=== PATIENT | male | born 1955 | race Caucasian/White ===

== ENCOUNTER 2017-04-25 09:44 | Inpatient (IN) | payer MEDICARE, BC ==
[~2017-04-25] VITALS: Ht 188 cm; Wt 120.0 kg
--- NOTE | 2017-04-25 09:30 | NUR ---
ADMIT TO FLOOR VIA AMBULANCE STRETCHER. [facility] TO TRANSFER PT. HE IS CONFUSED AND MUMBLING. COOPERATIVE WITH SIMPLE ONE STEP COMMANDS.
[2017-04-25 12:52] VITALS: BP 109/49; BMI 35.2
--- NOTE | 2017-04-25 15:54 | NUR ---
RESTING QUIETLY IN BED. LIFE VEST WAS PLACED ON PT BUT SENSOR MONITOR SHOWED TO REMOVE VEST DUE TO MALFUNCTION. CALLED [employer] SUPPORT TO HAVE TECHNITION COME EVAL PROBLEM. PT WAS PLACED IN TELEMETRY. HE IS A MAX ASST WITH ROLLING OVER. NO DRAINAGE NOTED FROM WOUNDS. STILL WEARING OXYGEN AT 3LNC. RENAL GAS PIT WORKER ROUNDED ON PT AND SPOKE WITH PT AND . MEDS REVIEWED BY GAS PIT WORKER. PT SCHEDULED FOR DIALYSIS ON 04/26/17
[2017-04-25 19:29] VITALS: BP 119/81
--- NOTE | 2017-04-25 19:29 | NUR ---
RECIEVED UP IN BED WITH EYES OPEN AND TV ON. SPOUSE AT BEDSIDE. HOB ELEVATED AND O2@ 3 LITERS PER N/C. RESP EVEN AND UNLABORED. DENIES ANY PAIN OR NEEDS AT THIS TIME. FISTULA TO LEFT UPPER ARM WITH GOOD BRUIT AND TRILL. SL TO RIGHT WRIST. DRESSING TO ABD AND RIGHT THIGH. CALL LIGHT AND OVERBED TABLE IN REACH.
--- NOTE | 2017-04-25 23:01 | NUR ---
RESTING IN BED WITH EYEYS CLOSD. HOB ELEVATED AND O2@3 LITERS PER N/C. DRESSINGS TO ABD AND RIGHT UPPER THIGH CHANGED THIS SHIFT. IV D/C'D. DOES NOT URINATE R/T CHRONIC KIDNEY FAILURE. CALL LIGHT AND OVERBED TABLE IN REACH.
--- NOTE | 2017-04-26 02:09 | NUR ---
RESTING IN BED WITH EYES COPEN. CALL LIGHT AND OVER BED TABLE IN REACH. HOB ELEVATED AND O2@3 LITERS PER N/C. RESP EVEN AND UNLABORED. SPOUSE AT BEDSIDE WITH EYES CLOSED.
[2017-04-26] MEDS ORDERED: FERRIC CITRATE210 MG PO (06:51)
[2017-04-26] MEDS ORDERED: PROTONIX40 MG PO (06:52)
[2017-04-26] MEDS ORDERED: GABAPENTIN100 MG PO (06:52)
[2017-04-26] MEDS ORDERED: COMBIVENT RESPIM4 GM INH (06:57)
[2017-04-26] MEDS ORDERED: MEXITIL 150 MG150 MG PO (06:58)
[2017-04-26] MEDS ORDERED: RENAGEL400 MG PO (07:00)
[2017-04-26] MEDS ORDERED: DAKIN'S 0.125%480 M1 TOPICAL (07:02)
[2017-04-26] MEDS ORDERED: LIDOCAINE 2 %100 ML PO (07:05)
[2017-04-26 07:12] LABS: BASOPHILS 0.4 % (0-2); EOSINOPHILS 3.8 % (0-7); HEMATOCRIT 39.3 % (42.0-54.0); HEMOGLOBIN 11.9 g/dL (13.5-17.5); IMMATURE GRANULOCYTES 0.4 % (0-5); LYMPHOCYTES 11.3 % (15-50); MCH 29.4 pg (26.0-34.0); MCHC 30.3 g/dL (31.0-37.0); MEAN PLATELET VOLUME 11.7 fL (7.4-10.4); MONOCYTES 15.3 % (2-11); NEUTROPHILS 68.8 % (40-80); PLATELET COUNT 111 10x3/uL (130-400); RBC 4.05 10x6/uL (4.20-6.10); WBC 4.5 10x3/uL (4.8-10.8)
[2017-04-26 07:24] LABS: ANION GAP 20.3 mmol/L (8-16); CALCIUM 8.4 mg/dL (8.5-10.1); CARBON DIOXIDE 26.4 mmol/L (21.0-32.0); CREATININE - SERUM 9.2 mg/dL (0.6-1.3); POTASSIUM - SERUM 5.7 mmol/L (3.5-5.1)
--- NOTE | 2017-04-26 07:30 | NUR ---
LYING IN BED EYES CLOSED RESTING. AT BEDSIDE. APPROPRIATE RISE AND FALL OF CHEST. NO S/SX OF ACUTE DISTRESS NOTED. CALL LIGHT AND PERSONAL ITEMS WITHIN REACH, BED LOW AND ALARM ON. WILL CONTINUE TO MONITOR
[2017-04-26 09:49] VITALS: BP 105/44
--- NOTE | 2017-04-26 10:55 | NUR ---
IN THERAPY GYM WITH OCCUPATIONAL THERAPY. NO S/SX OF RESPIRATORY DISTRESS NOTED.
[2017-04-26 12:53] VITALS: Ht 188 cm; Wt 120.0 kg
--- NOTE | 2017-04-26 13:46 | NUR ---
SITTING UP IN W/C VISITING WITH FAMILY. DENIES ANY NEEDS OR PAIN. NO S/SX OF ACUTE DISTRESS NOTED. CALL LIGHT WITHIN REACH, W/C BRAKES LOCKED AND BOX ALARM ON. WILL CONTINUE TO MONITOR
--- NOTE | 2017-04-26 13:50 | NUR ---
TRANSPORTED TO DIALYSIS VIA W/C
--- NOTE | 2017-04-26 18:15 | NUR ---
RECEIVED PT BACK ON FLOOR FROM DIALYSIS VIA W/C. AND SON IN ROOM WITH PT. CALL LIGHT WITHIN REACH, W/C BRAKES LOCKED AND ALARM ON
--- NOTE | 2017-04-26 18:41 | NUR ---
RESTING QUIETLY IN BED. CALL LIGHT IN REACH. BED IN LOWEST POSITION.
[2017-04-26 19:46] VITALS: BP 102/59
--- NOTE | 2017-04-26 19:48 | NUR ---
RECIEVED UP IN BED WITH EYES OPEN AND SEVERAL FAMILY MEMBERS AT BEDSIDE. CALL LIGHT IN REACH.
--- NOTE | 2017-04-27 02:38 | NUR ---
RESTING IN BED WITH EYES CLOSED. NO S/S OF DISTRESS OBSERVED. CALL LIGHT AND OVERBED TABLE IN REACH. NO OUTPUT THIS SHIFT D/T ESRD.
--- NOTE | 2017-04-27 08:40 | NUR ---
PT AM MEDS ADMINISTERED. PT DENIES NEEDS AT THIS TIME. WCTM.
[2017-04-27 08:43] VITALS: BP 101/50
--- NOTE | 2017-04-27 18:27 | NUR ---
PT HAS RESTED MOST OF THE DAY. FAMILY HAS BEEN AT BEDSIDE VISITING ALL DAY. PT DRESSINGS CHANGED APPX 14O0. PT RT ABD HAS BLACK ESCHAR, PAINTED WITH BETADINE AND COVERED WITH DRY DRESSING. PT RT THIGH WOUND HAS YELLOW ESCHAR AND IS COVERED IN WET TO DRY DRESSING WITH DAKINS SOLUTION. PT RT HEEL IS IS DEEP RED. HEELS ARE BRIDGED.
[2017-04-27 19:40] VITALS: BP 99/53
--- NOTE | 2017-04-27 19:40 | NUR ---
RECIEVED UP IN BED WITH EYES CLOSED. NO S/S OF DISTRESS OBSERVED. CALL LIGHT AND OVERBED TABLE IN REACH.
--- NOTE | 2017-04-28 00:38 | NUR ---
RESTING IN BED WITH EYES CLOSED. SPOUSE AT BEDSIDE. NO S/S OF DISTRESS OBSERVED. CALL LIGHT IN REACH.
--- NOTE | 2017-04-28 02:48 | NUR ---
RESTING IN BED WITH EYES CLOSED. N O S/S OF DISTRESS OBSERVED. CALL LIGHT IN REACH.
--- NOTE | 2017-04-28 06:18 | NUR ---
PT RESTING IN BED WITH EYES OPEN, DRINKING A CUP OF COFFEE WITH HIS . ANXIOUS TO EAT BREAKFAST. NO ACUTE DISTRESS NOTED.
[2017-04-28 07:28] LABS: BASOPHILS 0.5 % (0-2); EOSINOPHILS 4.5 % (0-7); HEMATOCRIT 38.9 % (42.0-54.0); HEMOGLOBIN 11.6 g/dL (13.5-17.5); IMMATURE GRANULOCYTES 0.3 % (0-5); LYMPHOCYTES 10.8 % (15-50); MCHC 29.8 g/dL (31.0-37.0); MCV 97.3 fL (80.0-100.0); MEAN PLATELET VOLUME 11.6 fL (7.4-10.4); MONOCYTES 12.6 % (2-11); NEUTROPHILS 71.3 % (40-80); PLATELET COUNT 102 10x3/uL (130-400); RDW 18.6 % (11.5-14.5)
[2017-04-28 07:38] LABS: ANION GAP 15.5 mmol/L (8-16); CALCIUM 8.6 mg/dL (8.5-10.1); CARBON DIOXIDE 29.5 mmol/L (21.0-32.0); CREATININE - SERUM 8.9 mg/dL (0.6-1.3)
--- NOTE | 2017-04-28 07:54 | NUR ---
RESTING QUIETLY IN BED. CALL LIGHT IN REACH. BED IN LOWEST POSITION.
--- NOTE | 2017-04-28 08:00 | NUR ---
PATIENTS IN ROOM. PATIENT ALERT. SITTING UP IN BED TO EAT BREAKFAST. BED ALARM ON. CALL LIGHT WITHIN REACH. PATIENT IS A DIALYSIS PATIENT. RESERVE LEFT ARM. LEFT ARM FISTULA.
--- NOTE | 2017-04-28 08:17 | CN ---
PATIENT NAME:FOX GUILLORY MEDICAL RECORD: [id number] : 53 LOCATION:[id number] ADMIT DATE: 04/25/17 ACCOUNT: [id number] CONSULTING PHYSICIAN: ALVIN STEPHENSON MD REFERRING PHYSICIAN: BRUCE PIERCE MD DATE OF CONSULTATION: 04/26/2017 Cardiology Consultation HISTORY OF PRESENT ILLNESS: A 61-year-old gentleman with a cardiovascular history who had previous history of coronary artery bypass grafting. Actually was seen at [facility] with [place], has a history of noncompliance. At that point in time, EF was 30% to 35%. He had patent grafts to all major cardiac territories, was transferred here for strengthening and wound care. He is being evaluated for a defibrillator which cannot be done until wounds are healed. We are asked to see him concerning his cardiovascular status. PAST MEDICAL HISTORY: 1. History of diabetes mellitus. 2. Hypertension. 3. Hyperlipidemia. 4. Coronary artery bypass grafting. 5. Ischemic cardiomyopathy. 6. Chronic renal insufficiency. ALLERGIES: PENICILLIN. MEDICATIONS: Currently include Combivent 1 puff b.i.d., Mexitil 150 b.i.d., Neurontin 200 t.i.d., Renagel 400 every day, Protonix 40 every day. SOCIAL HISTORY: Lives in [place], nonsmoker, typically he takes care of his ADLs. Has been noncompliant in the past by previous report. REVIEW OF SYSTEMS: The patient reports easy bruising but reports no swollen glands. The patient reports no fever, no night sweats, no significant weight gain, no significant weight loss. No significant exercise tolerance. The patient reports no dry eyes, no irritation, no vision change. Patient reports no difficulty hearing and no ear pain. Patient reports no frequent nose bleeds or nose and sinus problems. Patient reports on arm pain on exertion. No shortness of breath while lying down. No history of heart murmur. Patient reports no cough, no wheezing or coughing up blood. Patient reports no abdominal pain, no vomiting. Normal appetite. No diarrhea and not vomiting blood. No nausea and no constipation. Patient reports no incontinence. No difficulty urinating. No hematuria. No increased frequency. Patient reports no muscle aches. No weakness, no arthralgias, no back pain. No swelling of the extremities. Patient reports no abnormal mole, no jaundice, no rashes. Reports no loss of consciousness. No weakness and no numbness. No seizures, dizziness, or headaches. The patient reports no depression, no sleep disturbance, feeling safe in a relationship and no alcohol abuse. Patient reports on fatigue. Reports no runny nose or sinus pressure. No itching, no hives, and no frequent sneezing. PHYSICAL EXAMINATION: GENERAL: Chronically ill-appearing gentleman in no acute distress. CONSULT REPORT [id number] FOX GUILLORY VITAL SIGNS: 105/44, pulse 64 and irregular. HEENT: Normocephalic, atraumatic. NECK: No bruits noted. HEART: Irregular II/ systolic ejection murmur. LUNGS: Actually fairly good air excursion. ABDOMEN: Soft, nontender. EXTREMITIES: Pulses 2+. There is no edema. IMPRESSION: Coronary artery disease, cardiomyopathy, chronic systolic dysfunction, renal insufficiency. At this point in time, would like to start JOSE or ARB; however, given his renal failure and potassium at 5.7, would hold on this currently. His rates have been somewhat dorothy, may have trace sick sinus syndrome, would hold carvedilol as well. If potassium comes down with dialysis certainly reevaluate addition of JOSE or ARB. TRANSINT:[id number] Voice Confirmation ID: [id number] DOCUMENT ID: [id number] ALVIN STEPHENSON MD at 0817 CC: [id number] DICTATION DATE: 04/26/17 1026 GEEK SQUAD MANAGER: 04/26/17 1209 ADM IN [id number] [place] [address]
--- NOTE | 2017-04-28 10:55 | NUR ---
PATIENT OM REHAB ROOM, WORKING WITH PHYSICAL THERAPIST. VOICES NO PAIN/DISC AT THIS TIME
--- NOTE | 2017-04-28 11:12 | NUR ---
DR. ANDERSEN INTO SEE PATIENT.
[2017-04-28 12:00] VITALS: BP 108/56
--- NOTE | 2017-04-28 13:46 | NUR ---
PRN PAIN MEDICATION GIVEN FOR THIGH PAIN AFTER THERAPY.
--- NOTE | 2017-04-28 14:34 | NUR ---
DR. WASHINGTON OFFICE CALLED. THIS NURSE TALKED WITH DALE ARAGON. [facility] HAS NO OPTHMOLOGIST ASSOC WITH HOSPITAL AT THIS TIME. WILL HAVE [facility]BER FOLLOW UP WHEN PATIENT IS READY TO BE DISCHARGED.
--- NOTE | 2017-04-28 18:00 | NUR ---
DEWAXER NOTIFIED THIS NURSE THAT PATIENT WILL BE GETTING TX IN ROOM LATER THIS PM
[2017-04-28 19:45] VITALS: BP 114/33
--- NOTE | 2017-04-28 20:05 | NUR ---
PT. IN BED WITH HOB UP FOR COMFORT. ASSESSMENT COMPLETED. NO DRESSING TO RIGHT LATERAL ABD. AREA WHERE BLACK COLORED WOUND BED IS LOCATED. DRESSING TO RIGHT UPPER THIGH DRY AND INTACT. PT. ASKING ABOUT HIS DIALYSIS FOR TODAY. INFORMED PT. THAT I WAS TOLD HE WOULD BE GETTING HIS DIALYSIS TONIGHT AND I WAS WAITING FOR SOMEONE TO CALL. PT. STATED HE UNDERSTOOD. CALL LIGHT WITHIN REACH.
--- NOTE | 2017-04-28 22:10 | NUR ---
RECEIVED CALL FROM [facility] DIALYSIS NURSE, REQUESTING I BRING PT. TO THE DIALYSIS UNIT VIA W/C. AFTER ASSISTING PT. BACK TO W/C FROM BR, TRANSPORTED PT. TO THE DIALYSIS UNIT VIA W/C WITHOUT ANY PROBLEMS.
--- NOTE | 2017-04-29 02:10 | NUR ---
PT. BACK FROM DIALYSIS WHERE NURSE REPORTS SHE WAS ABLE TO REMOVE 2L TONIGHT. PT. BACK TO BED AND POSITIONED TO COMFORT WITH HEELS BRIDGED. CALL LIGHT WITHIN REACH.
--- NOTE | 2017-04-29 03:08 | NUR ---
PT. IN BED WITH HOB UP FOR COMFORT. EYES CLOSED AND RESP. DEEP AND EVEN. O2 ON AT 2L/MIN VIA N/C WITHOUT ANY S/S DISTRESS OBSERVED. CALL LIGHT WITHIN REACH.
[2017-04-29 06:01] VITALS: BP 120/73
--- NOTE | 2017-04-29 08:07 | NUR ---
PT RESTING IN BED WITH EYES OPEN CALL LIGHT IN REACH WILL MONITER PT EATING BREAKFAST WILL MONITER
--- NOTE | 2017-04-29 08:25 | NUR ---
SITTING ON SIDE OF BED.FINISHED BREAKFAST.CL IN REACH.
--- NOTE | 2017-04-29 11:03 | NUR ---
Nutrition Follow Up: Pt was in therapy at the time of RD visit. Interview deferred. Pt is eating 83% meal avg on a renal ADA diet. +BM 04/26/17. Meds and labs reviewed. Rec continue current diet. RD following.
[2017-04-29 11:39] VITALS: BP 101/54
--- NOTE | 2017-04-29 14:00 | NUR ---
RECEIVED CALL FROM [employer] AND THEY WALKED ME THRU TRYING TO GET VEST TO WORK PROPERLY NOT SUCESSFUL STATED HE WOULD SENT OUT SOME ONE TO REPAIR OR REPLACE LIFE VEST UNIT LEANDRO
--- NOTE | 2017-04-29 14:40 | NUR ---
PT TAKEN TO DIALYSIS VIA WHEELCHAIR NO PROBLEMS
--- NOTE | 2017-04-29 17:00 | NUR ---
RECIVED ANOTHER CALL FROM [employer] STATED THEY WOULD BE HERE BETWEEN 10
[2017-04-29 17:11] LABS: HEP B CORE AB TOTAL Negative (Negative)
[2017-04-29 17:11] LABS: HEPATITIS C ANTIBODY <0.1 (0.0-0.9)
--- NOTE | 2017-04-29 19:35 | NUR ---
PATIENT OFF UNIT IN DIALYSIS.
--- NOTE | 2017-04-29 20:20 | NUR ---
CONTINUES OFF UNIT IN DIALYSIS.
[2017-04-29 20:30] VITALS: BP 99/62
--- NOTE | 2017-04-29 20:30 | NUR ---
RETURNED PATIENT TO BED FROM DIALYSIS. NOW SEATED AT BEDSIDE EATING DINNER WHICH WAS HELD EARLIER DUE TO DIALYSIS.
--- NOTE | 2017-04-29 22:15 | NUR ---
ASSESSMENT AND HS MEDS COMPLETE. DRESSINGS TO RIGHT THIGH AND RIGHT UPPER ABDOMEN CHANGED PER CURRENT ORDERS. PATIENT ORIENTED X4 BUT STILL SEEMS A BIT OFF ON COGNITION. REP FROM COMPANY PROVIDING PATIENT'S "[employer]" WAS JUST HERE AND INSERVICED PATIENT AGAIN AND PERFORMED DIAGNOSTICS ON THE DEVICE. THEN HE CHECKED WITH ME BEFORE LEAVING TO INSURE I HAD NO QUESTIONS.
[2017-04-29 23:30] VITALS: BP 103/61
--- NOTE | 2017-04-29 23:30 | NUR ---
PATIENT WAS JUST GIVEN A BEDBATH AND LINENS AND CLOTHES WERE CHANGED BY SUKHI FARIA. PATIENT DENIES NEEDS.
[2017-04-29 23:40] VITALS: BP 103/61
--- NOTE | 2017-04-30 00:10 | NUR ---
RESTING IN BED IN PARTIAL RIGHT SIDELYING POSITION, HOB UP 30 DEGREES. NO DISTRESS APPARENT.
--- NOTE | 2017-04-30 02:00 | NUR ---
CONTINUES IN BED IN PARTIAL RIGHT SIDELYING POSITION. NO DICOMFORT EVIDENT.
--- NOTE | 2017-04-30 04:35 | NUR ---
CONTINUES IN BED, EYES CLOSED. RESPIRATIONS ARE QUIET AND UNLABORED.
[2017-04-30 05:35] VITALS: BP 97/63
[2017-04-30 06:46] LABS: BASOPHILS 0.3 % (0-2); EOSINOPHILS 3.9 % (0-7); HEMATOCRIT 38.7 % (42.0-54.0); HEMOGLOBIN 11.6 g/dL (13.5-17.5); IMMATURE GRANULOCYTES 0.3 % (0-5); LYMPHOCYTES 11.7 % (15-50); MCH 29.1 pg (26.0-34.0); MCV 97.2 fL (80.0-100.0); MEAN PLATELET VOLUME 11.3 fL (7.4-10.4); MONOCYTES 15.3 % (2-11); NEUTROPHILS 68.5 % (40-80); PLATELET COUNT 92 10x3/uL (130-400); RBC 3.98 10x6/uL (4.20-6.10); RDW 18.9 % (11.5-14.5); WBC 3.6 10x3/uL (4.8-10.8)
[2017-04-30 07:06] LABS: CALCIUM 8.7 mg/dL (8.5-10.1); CARBON DIOXIDE 28.6 mmol/L (21.0-32.0); CREATININE - SERUM 7.4 mg/dL (0.6-1.3); POTASSIUM - SERUM 4.6 mmol/L (3.5-5.1)
--- NOTE | 2017-04-30 07:55 | NUR ---
LYING IN BED ON RIGHT SIDE EYES CLOSED RESTING. DENIES ANY NEEDS. CONTINUES ON 2L VIA NC. LIFE VEST ON AND IN WORKING ORDER. NO S/SX OF ACUTE DISTRESS NOTED. CALL LIGHT AND PERSONAL ITEMS WITHIN REACH, BED LOW AND ALARM ON. WILL CONTINUE TO MONITOR
[2017-04-30 08:37] LABS: PLATELET ESTIMATE DECREASED
--- NOTE | 2017-04-30 10:15 | NUR ---
IN THERAPY GYM WITH OCCUPATIONAL THERAPY. NO S/SX OF RESPIRATORY DISTRESS NOTED. WILL CONTINUE TO MONITOR
[2017-04-30 12:13] VITALS: BP 104/52
--- NOTE | 2017-04-30 12:20 | NUR ---
SITTING UP ON SIDE OF BED EATING LUNCH. DENIES ANY NEEDS OR PAIN. NO S/SX OF ACUTE DISTRESS NOTED. CALL LIGHT AND PERSONAL ITEMS WITHIN REACH, BED LOW AND ALARM ON. WILL CONTINUE TO MONITOR
--- NOTE | 2017-04-30 17:04 | NUR ---
LYING IN BED EYES CLOSED RESTING. APPROPRIATE RISE AND FALL OF CHEST. NO S/SX OF ACUTE DISTRESS NOTED. CALL LIGHT AND PERSONAL ITEMS WITHIN REACH, BED LOW AND ALARM ON. WILL CONTINUE TO MONITOR
[2017-04-30 18:30] VITALS: BP 101/64
--- NOTE | 2017-04-30 19:00 | NUR ---
IN BED, AWAKE. LEFT FOOT RESTING ATOP FOOTBOARD. ASSISTED HIM UP IN BED TO ELIMINATE COMPRESSION TO LEFT HEEL. PATIENT DENIES NEEDS. ASKED HIM TO COMPLETE HIS MENU.
--- NOTE | 2017-04-30 21:25 | NUR ---
ASSESSMENT AND HS MEDS COMPLETE. DENIES NEEDS. DRESSING CHANGES TO RIGHT THIGH AND RIGHT UPPER ABDOMEN CHANGED PER CURRENT ORDERS.
--- NOTE | 2017-04-30 22:20 | NUR ---
RESTING QUIETLY IN BED, IN PARTIAL RIGHT SIDELYING POSITION. APPEARS COMFORTABLE.
[2017-04-30 23:15] VITALS: BP 117/61
--- NOTE | 2017-04-30 23:50 | NUR ---
CONTINUES IN BED, EYES CLOSED. NO DISTRESS EVIDENT.
--- NOTE | 2017-05-01 02:15 | NUR ---
REMAINS IN BED TURNED TO PARTIAL RIGHT SIDELYING POSITION. O2 CONTINUES @ 2L PER N/C.
--- NOTE | 2017-05-01 04:35 | NUR ---
IN BED, EYES CLOSED. RESPIRING QUIETLY.
[2017-05-01 06:00] VITALS: BP 112/58
--- NOTE | 2017-05-01 06:10 | NUR ---
VS AND STANDING SCALE WEIGHT OBTAINED AND RECORDED. PATIENT TOOK SCHEDULED PO MED. REPOSITIONED HIM HIGHER UP IN BED FOR COMFORT. SEEMS A BIT CONFUSED THIS MORNING AND HAVING A BIT OF DIFFICULTY FOLLOWING COMMANDS. WEIGHT 275.0 LBS PER STANDING SCALE.
--- NOTE | 2017-05-01 07:31 | NUR ---
RESTING QUIETLY IN BED. CALL LIGHT IN REACH. BED IN LOWEST POSITION.
--- NOTE | 2017-05-01 08:15 | NUR ---
PT RESTING IN BED WITH EYES OPEN CALL LIGHT IN REACH WILL MONITER
[2017-05-01 12:22] VITALS: BP 101/57
--- NOTE | 2017-05-01 16:31 | NUR ---
CARE TEAM MEETING: PATIENT PROGRESSING IN THERAPY . TENATIVE DISCHARGE DATE IS 05/14/17. WILL CONTINUE TO FOLLOW WITH PATIENT.
--- NOTE | 2017-05-01 17:18 | NUR ---
PT UP IN WHEELCHAIR EATING LUCN CALL LIGHT IN REACH WILL MONITER
[2017-05-01 17:55] VITALS: BP 92/42
--- NOTE | 2017-05-01 19:00 | NUR ---
PATIENT SITTING UP ON BEDSIDE EATING HIS DINNER AFTER RECENT RETURN FROM DIALYSIS. DENIES CURRENT NEEDS.
--- NOTE | 2017-05-01 20:30 | NUR ---
RESTING QUIETLY IN BED ON RIGHT SIDE. O2 PER N/C @ 2L FLOW. CONTINUES ON LIFE VEST WHICH INDICATES IT IS MONITORING ROUTINELY AT THIS TIME.
[2017-05-01 22:55] VITALS: BP 129/63
--- NOTE | 2017-05-01 22:55 | NUR ---
ASSESSMENT AND HS MEDS COMPLETE. CHANGED DRESSINGS TO RIGHT THIGH AND RIGHT UPPER ABDOMEN. PATIENT DENIES NEEDS.
--- NOTE | 2017-05-02 00:20 | NUR ---
RESTING IN BED, EYES CLOSED. HOB UP 20 DEGREES. CONTINUES ON O2 @ 2L.
--- NOTE | 2017-05-02 02:10 | NUR ---
CONTINUES IN BED, RESTING ON RIGHT SIDE. APPEARS COMFORTABLE.
--- NOTE | 2017-05-02 04:45 | NUR ---
RESTING QUIETLY IN BED, EYES CLOSED. SNORING SOFTLY.
[2017-05-02 05:40] VITALS: BP 104/59
--- NOTE | 2017-05-02 05:50 | NUR ---
PATIENT TOOK SHCEDULED PROTONIX. VS AND STANDING WEIGHT TAKEN. DENIES NEEDS. CHANGED BATTERY TO LIFE VEST.
--- NOTE | 2017-05-02 07:25 | NUR ---
LYING IN BED ON RIGHT SIDE EYES CLOSED RESTING. DENIES ANY NEEDS. ALERT AND ORIENTED X4. CALL LIGHT AND PERSONAL ITEMS WITHIN REACH, BED LOW AND ALARM ON. WILL CONTINUE TO MONITOR
[2017-05-02 07:37] LABS: BASOPHILS 0.2 % (0-2); EOSINOPHILS 3.3 % (0-7); HEMATOCRIT 38.3 % (42.0-54.0); HEMOGLOBIN 11.4 g/dL (13.5-17.5); IMMATURE GRANULOCYTES 0.5 % (0-5); LYMPHOCYTES 12.9 % (15-50); MCH 29.1 pg (26.0-34.0); MCHC 29.8 g/dL (31.0-37.0); MCV 97.7 fL (80.0-100.0); MEAN PLATELET VOLUME 11.3 fL (7.4-10.4); MONOCYTES 13.8 % (2-11); NEUTROPHILS 69.3 % (40-80); PLATELET COUNT 86 10x3/uL (130-400); RBC 3.92 10x6/uL (4.20-6.10); WBC 4.2 10x3/uL (4.8-10.8)
[2017-05-02 07:53] LABS: ANION GAP 14.1 mmol/L (8-16); CALCIUM 8.9 mg/dL (8.5-10.1); CARBON DIOXIDE 29.5 mmol/L (21.0-32.0); CREATININE - SERUM 7.6 mg/dL (0.6-1.3); POTASSIUM - SERUM 4.6 mmol/L (3.5-5.1)
--- NOTE | 2017-05-02 08:28 | NUR ---
SITTING UP EATING BREAKFAST. DENIES NEEDS.
--- NOTE | 2017-05-02 09:52 | NUR ---
IN THERAPY GYM WITH PHYSICAL THERAPY
--- NOTE | 2017-05-02 10:50 | NUR ---
IN THERAPY GYM WITH PHYSICAL THERAPY. NO S/SX OF ACUTE DISTRESS NOTED. WILL CONTINUE TO MONITOR
[2017-05-02 12:37] VITALS: BP 108/68
--- NOTE | 2017-05-02 13:56 | NUR ---
IN THERAPY GYM WITH SUSY OCCUPATIONAL THERAPY. NO S/SX OF ACUTE DISTRESS NOTED. WILL CONTINUE TO MONITOR
--- NOTE | 2017-05-02 17:00 | NUR ---
LYING IN BED ON RIGHT SIDE EYES CLOSED RESTING. APPROPRIATE RISE AND FALL OF CHEST. NO S/SX OF RESPIRATORY DISTRESS NOTED. CALL LIGHT AND PERSONAL ITEMS WITHIN REACH, BED LOW AND ALARM ON. WILL CONTINUE TO MONITOR
[2017-05-02 18:15] VITALS: BP 102/62
--- NOTE | 2017-05-02 19:40 | NUR ---
PT. IN BED WITH HOB UP FOR COMFORT AND IS VISITING HIS AND YOUND DAUGHTER. ASSESSMENT COMPLETED. PT. WEARING LIFE VEST WHICH IS AN EXTERNAL DEFIBRILLATOR. DAY SHIFT NURSE, XIMENA, EXPLAINED THE USE OF VEST. NO ALARMS FROM IT TODAY. IS AWARE OF HOW TO USE VEST. NO VOICED NEEDS AT THIS TIME AND PT. HAS HIS CALL LIGHT WITHIN REACH.
[2017-05-02 19:55] VITALS: BP 90/68
--- NOTE | 2017-05-02 23:10 | NUR ---
PT. IN BED WITH HOB UP FOR COMFORT. EYES CLOSED AND RESP. EVEN. O2 VIA N/C AT 2L/MIN WITHOUT ANY S/S DISTRESS OBSERVED. CALL LIGHT WITHIN REACH.
[2017-05-03 00:49] VITALS: BP 90/51
--- NOTE | 2017-05-03 09:42 | NUR ---
PATIENT IS ALERT/ORIENT X4. AND GRANDAUGHTER IN ROOM WITH PATIEN. USING CALL LIGHT FOR NEEDS. CALL LIGHT WITHIN REACH OF PATIENT.
--- NOTE | 2017-05-03 09:44 | NUR ---
DRESSING CHANGED TO RIGHT SIDE ABDOMEN AND RIGHT UPPER THIGH AREA PER ORDER.
[2017-05-03 11:46] VITALS: BP 114/64
--- NOTE | 2017-05-03 12:48 | NUR ---
PATIENT SITTING UP AT THE SIDE OF THE BED. FAMILY IN ROOM WITH PATIENT.
--- NOTE | 2017-05-03 14:08 | NUR ---
PATIENT TAKEN DOWN TO DAILYSIS BY THIS NURSE.
--- NOTE | 2017-05-03 16:58 | NUR ---
PATIENT REMAINS DOWN IN DIALYSIS CLINIC.
--- NOTE | 2017-05-03 17:30 | NUR ---
SITTING ON SIDE OF BED EATING SUPPER.CL IN REACH.
--- NOTE | 2017-05-03 19:35 | NUR ---
PT. HAS ONLY BEEN BACK FROM DIALYSIS A SHORT WHILE AND IS STILL SITTING UP IN HIS W/C. PT. WANTS TO EAT HIS DINNER AND LATER TAKE PANTS OFF, GET IN BED AND GO TO SLEEP. PT. DOESN'T WANT SHOWER HE IS TOO TIRED FROM LATE DIALYSIS. ASSESSMENT COMPLETED. LIFE VEST IN PLACE AND NO ALARMS HAVE GONE OFF TODAY. CALL LIGHT WITHIN REACH.
[2017-05-03 19:45] VITALS: BP 90/45
--- NOTE | 2017-05-03 23:10 | NUR ---
PT. IN BED WITH HOB UP FOR COMFORT AND IS LYING ON HIS RIGHT SIDE. LIFE VEST REMAINS ON AND NO ALARMS THIS SHIFT. EYES CLOSED AND RESP. EVEN. CALL LIGHT WITHIN REACH.
[2017-05-04 00:14] VITALS: BP 94/50
--- NOTE | 2017-05-04 03:00 | NUR ---
PT. IN BED WITH HOB UP FOR COMFORT. EYES CLOSED AND RESP. EVEN. CALL LIGHT WITHIN REACH.
[2017-05-04 05:41] VITALS: BP 95/58
--- NOTE | 2017-05-04 08:00 | NUR ---
PATIENT IS ALERT/ORIENT. AND GRAND DAUGHTER IN ROOM WITH PATIENT. BED ALARM ON. CALL LIGHT WITHIN REACH. PATIENT USING CALL LIGHT FOR NEEDS
[2017-05-04 08:38] VITALS: BP 106/61
--- NOTE | 2017-05-04 11:00 | NUR ---
PATIENT RESTING WELL IN ROOM. FAMILY REMAINS AT BEDSIDE. PATIENT VOICES NO NEEDS AT THIS TIME.
[2017-05-04 12:10] VITALS: BP 104/61
--- NOTE | 2017-05-04 14:53 | NUR ---
PATIENT RESTING IN BED. EYES SHUT. RESPIRATIONS STEADY, EVEN. CALL LIGHT WITHIN REACH
--- NOTE | 2017-05-04 17:19 | NUR ---
SITTING ON SIDE OF BED EATING SUPPER.CL IN REACH.
--- NOTE | 2017-05-04 17:40 | NUR ---
PATIENT HELPED IN SHOWER BY NURSE ASST.
[2017-05-04 18:13] VITALS: BP 105/49
--- NOTE | 2017-05-04 19:15 | NUR ---
PT. IN BED WITH HOB UP FOR COMFORT AND IS WEARING HIS N/C O2 WITHOUT ANY S/S RESP. DISTRESS. EYES ARE CLOSED AND HIS CALL LIGHT IS WITHIN REACH.
--- NOTE | 2017-05-04 19:16 | NUR ---
SHIFT REOPRT COMPLETED FROM DAY SHIFT NURSE.
--- NOTE | 2017-05-04 21:25 | NUR ---
DRESSING CHANGED ORDERED.
--- NOTE | 2017-05-04 23:40 | NUR ---
REST IN BED, CALL LIGHT IN REACH.
--- NOTE | 2017-05-05 00:15 | NUR ---
ASSESSED VITAL SIGNS, SEE FLOWSHEET.
[2017-05-05 00:27] VITALS: BP 106/48
--- NOTE | 2017-05-05 02:16 | NUR ---
REST IN BED, CALL LIGHT IN REACH.
--- NOTE | 2017-05-05 03:10 | NUR ---
ASSISTED PT TO BATHROOM.
[2017-05-05 05:09] VITALS: BP 112/71
--- NOTE | 2017-05-05 08:00 | NUR ---
PATIENT ALERT/ORIENT X4. RESTING WELL. HAS REMOVED OXYGEN. RESPIRATIONS EVEN, UNLABERED. CALL LIGHT WITHIN REACH
--- NOTE | 2017-05-05 10:19 | NUR ---
DRESSING CHANGED TO RIGHT UPPER ABDOMEN WOUND AND RIGHT UPPER THIGH AREA PER ORDERS.
[2017-05-05 11:35] VITALS: BP 103/64
--- NOTE | 2017-05-05 12:46 | NUR ---
PATIENT SITTING UP IN RECLINER TO EAT LUNCH. GOOD APPETITE. EATTING 100% OF MOST MEALS
--- NOTE | 2017-05-05 16:49 | NUR ---
PATIENT RESTING IN RECLINER IN ROOM. VOICES NO NEEDS. CALL LIGHT WITHIN REACH
[2017-05-05 18:00] VITALS: BP 106/58
--- NOTE | 2017-05-05 18:55 | NUR ---
RESTING IN BED ON RIGHT SIDE, EYES CLOSED.
--- NOTE | 2017-05-05 20:30 | NUR ---
CONTINUES IN BED ON RIGHT SIDE. NO DISTRESS EVIDENT.
--- NOTE | 2017-05-05 22:15 | NUR ---
ASSESSMENT AND HS MEDS COMPLETE. CHANGED DRESSINGS TO RIGHT UPPER ABDOMEN AND RIGHT THIGH PER CURRENT ORDERS. PATIENT DENIES NEEDS.
[2017-05-05 23:35] VITALS: BP 109/57
--- NOTE | 2017-05-06 00:10 | NUR ---
RESTING IN BED, EYES CLOSED. HOB UP 20 DEGREES.
--- NOTE | 2017-05-06 02:00 | NUR ---
REMAINS IN BED, RESTING QUIETLY, EYES CLOSED.
--- NOTE | 2017-05-06 03:45 | NUR ---
REPOSITIONED PATIENT HIGHER UP IN BED HIS FEET WERE HARD UP AGAINST THE FOOTBOARD DUE TO SLIDING DOWN IN BED SINCE HE WAS REPOSITIONED @ 2214. REPLACED NASAL CANNULA PATIENT HAD PULLED IT OFF SINCE LAST ROUNDS @ 154.
[2017-05-06 06:20] VITALS: BP 105/56
--- NOTE | 2017-05-06 09:50 | NUR ---
Nutrition Follow Up: Pt was out of the room at the time of RD visit. Interview deferred at this time. Pt is eating 100% meal avg on a renal ADA diet. +BM 05/05/17. Wt stable. Meds and labs reviewed. Rec continue current diet. RD following.
--- NOTE | 2017-05-06 10:32 | NUR ---
LAB NOTIFIED OF LABS TO BE DONE IN DIALYSIS ON DIALYSIS DAYS SO PATIENT WILL NOT HAVE TO BE STUCK.
--- NOTE | 2017-05-06 10:36 | NUR ---
Sitting up in wc in room. Has been in therapy this AM. No c/o pain. Alert and seems to answer most questions appropriately. Slow response.
[2017-05-06 12:17] VITALS: BP 110/63
--- NOTE | 2017-05-06 13:13 | RHP ---
PATIENT: FOX GUILLORY MEDICAL RECORD: [id number] ACCOUNT: [id number] LOCATION:[place] [address] : 53 ADMISSION DATE: 04/25/17 REHABILITATION HISTORY AND PHYSICAL EXAMINATION POST ADMISSION PHYSICIAN EXAMINATION POST-ADMISSION PHYSICAL EXAMINATION AND HISTORY AND PHYSICAL DATE OF ADMISSION: 04/26/2017 ADMITTING DIAGNOSIS: Uremic myopathy. HISTORY OF PRESENT ILLNESS: The patient is a 61-year-old gentleman, who is admitted to the [facility] with sustained V-tach requiring defibrillation. He has got a history of coronary artery disease status post coronary artery bypass grafting by Dr. Encinas in 2014. He has got an implantable defibrillator. He has got end-stage renal disease, on hemodialysis, diabetes. He has also had cardiac ablation in the past, CHF, and hypertension. He presented to [facility] with complaints of chest pain, 7/10 with nausea and vomiting. He was started on an amiodarone drip with borderline hypotension. He was known to have an EF of 30% to 35% last year per echo, it had improved to 40% to 45% over time. He was recently seen by Dr. Reed due to depressed EF and possible ICD placement. He has been seeing wound care in [place] secondary to some nonhealing areas to his right thigh and right abdomen. He was diagnosed with calciphylaxis. After seeing Dr. Reed, he was referred to [facility] for wound clinic and then on 04/16 after much confusion with the patient's home meds, one of the change manager called both the patient's pharmacies and obtained list, which are different from each other. He states that he has been taking his Lasix and Eliquis, but neither pharmacy had these medications filled in the last 6 months. The patient and his thought that some of the medications that he was taking were appropriate, but apparently were not. Home medications include Coreg, doxycycline, gabapentin, hydrocodone, viscous lidocaine, losartan. He was scheduled for an appointment at the [facility] on 04/22 regarding his evaluation of left upper extremity fistula, which he was told was not working properly. He is currently receiving hemodialysis on Qhzodma-Hqguwyqo-Ocmwdzfl schedule at [facility] without difficulty. 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 At [facility] he has been fitted with a LifeVest. Amiodarone has been stopped secondary to confusion, but progress noted that the confusion may be related more to an anoxic brain injury from the sustained V-tach. He has been running sinus dorothy in the 40s. He has been hypotensive with blood pressures of 94/50. He has also been hyponatremic with sodiums in the 130-134 range. He has also been hyperkalemic. The patient has 2 calciphylaxis lesions requiring wound care. His right thigh has some yellow slough cleaned with Dakin's and packed lightly with 2 x 2s and then covered with a 4 x 4 twice daily. His abdominal wound is dry and stable with an eschar noted. The patient lives at home with his and from prior to his acute illness was completely independent with ADLs and driving himself to his hemodialysis appointment. He is now extremely weak and debilitated. He is requiring [id number]-omi assist for physical therapy. He is ambulating up to 30 feet, pushing wheelchair with max assist with poor balance, dragging his right lower extremity. Acute inpatient rehabilitation was requested. Comorbidities include diabetes, hypertension, acute kidney injury, dependence on renal dialysis, sinus dorothy, mitral valve regurgitation, diabetes, vertigo, renal failure, hemodialysis, hyperkalemia, nonhealing wounds, atrial flutter, HISTORY AND PHYSICAL [id number] FOX GUILLORY and noncompliance with current medical regimens. PAST MEDICAL HISTORY: Significant for renal failure, coronary artery disease, CHF, diabetes, dyslipidemia, hypertension, vertigo, electrolyte abnormalities, and atrial flutter. PAST SURGICAL HISTORY: Includes coronary artery bypass grafting. ALLERGIES: PENICILLIN. CURRENT MEDICATIONS: He is on Hilo 7.5/325 one tab every 6 hours p.r.n., viscous lidocaine p.r.n. He is on a Dakin's topical solution. He is on Renagel 1200 mg t.i.d. with meals. He is on Mexitil 150 mg b.i.d. He is on Combivent 2 puffs b.i.d. He is on Protonix 40 mg b.i.d., Neurontin 200 mg t.i.d., and polyethylene glycol 17 grams in 8 ounces of water daily. HABITS: No current alcohol or tobacco use. FAMILY HISTORY: Noncontributory. SOCIAL HISTORY: The patient hopes to be able to return back home with his . REVIEW OF SYSTEMS: GENERAL: Does complain of weakness. HEENT: Denies cold, cough, or congestion. CARDIOVASCULAR: Denies chest pain. PHYSICAL EXAMINATION: VITAL SIGNS: Stable, afebrile. GENERAL: A somewhat obese gentleman, in no acute distress upon exam. HEENT: Normocephalic and atraumatic. Mucosa moist. NECK: Supple, with no lymphadenopathy. LUNGS: Appear clear at this time. HEART: Irregular rate and rhythm. ABDOMEN: Benign. EXTREMITIES: He does have some dressings to his thigh. NEUROLOGIC: Seems mainly intact. LABORATORY DATA: His white count is 4.5, H&H of 11.9 and 39.3, and platelet count is 111. Sodium 138, potassium 5.7, BUN and creatinine of 57 and 9.2, and blood sugar was noted to be 86. ASSESSMENT: This is a 61-year-old gentleman admitted to the rehab with a working diagnosis of uremic myopathy. The patient has potential to make improvement. We will institute the following multidisciplinary therapies including, but not limited to physical, occupational, respiratory, speech, nutritional services, prosthetics and orthotics. Given his complex condition and risk for more complications, rehabilitation services cannot be provided at a low level of care such as a prison facility. PLAN: 1. Admit to [facility] rehab for intensive inpatient therapy to include the following disciplines: A. Physical therapy to improve gait, all transfer skills and bed mobility to a modified independent level. HISTORY AND PHYSICAL [id number] FOX GUILLORY B. Occupational therapy to improve activities of daily living to a modified independent level. C. Case management to assist with discharge planning and placement options. D. Nutrition to assist with nutritional needs. E. Rehabilitation nursing to assist in monitoring the patient's underlying medical conditions and to assist with any type of bowel or bladder management. 2. The patient's current medication and medical care will be continued. 3. The patient will be placed on standard fall precautions. 4. The patient's estimated length of stay is approximately 7-10 days. 5. We will continue to follow right along with nephrology. We definitely need their help with monitoring his renal functions and also managing his electrolytes. TRANSINT:[id number] Voice Confirmation ID: [id number] DOCUMENT ID: [id number] ADDENDUM 04/30/2017: I saw this patient and completed assessment at 9 a.m. Friday morning 04/26/2017. I was unable to dictate note until 12:22 p.m. on 04/26/2017. MINGO notes whether there has been none or any medical/functional change since admission: - No change since pre-admission screen. MINGO attests patient continues to be appropriate for IRF: - Continues to be appropriate. BRUCE PIERCE MD at 1313 CC: [id number] DICTATION DATE: 04/26/17 1222 VISION TEACHER: 04/26/17 1455 ADM IN [facility] [address] [place] [address]
[2017-05-06 13:58] LABS: BASOPHILS 0.2 % (0-2); EOSINOPHILS 3.8 % (0-7); HEMATOCRIT 37.4 % (42.0-54.0); HEMOGLOBIN 11.4 g/dL (13.5-17.5); IMMATURE GRANULOCYTES 0.2 % (0-5); MCH 29.2 pg (26.0-34.0); MCHC 30.5 g/dL (31.0-37.0); MCV 95.7 fL (80.0-100.0); MEAN PLATELET VOLUME 11.7 fL (7.4-10.4); MONOCYTES 9.6 % (2-11); NEUTROPHILS 77.2 % (40-80); RBC 3.91 10x6/uL (4.20-6.10); RDW 18.7 % (11.5-14.5); WBC 5.3 10x3/uL (4.8-10.8)
[2017-05-06 14:07] LABS: ANION GAP 13.8 mmol/L (8-16); CALCIUM 8.7 mg/dL (8.5-10.1); CARBON DIOXIDE 29.5 mmol/L (21.0-32.0); CREATININE - SERUM 8.9 mg/dL (0.6-1.3); POTASSIUM - SERUM 4.3 mmol/L (3.5-5.1)
[2017-05-06 14:09] LABS: PLATELET COUNT 106 10x3/uL (130-400)
--- NOTE | 2017-05-06 14:38 | NUR ---
At dialysis. Had early lunch and went to dialysis around 1240.
[2017-05-06 17:40] VITALS: BP 113/58
--- NOTE | 2017-05-06 17:45 | NUR ---
Returned from dialysis. VSS. No c/o pain. No change in assessment. Dressing to L fistula CDI-no bleeding noted. Bruit/thrill present. Sitting up in chair now eating dinner. Requested second tray of food. Will do dressing changes when he is finished with his dinner and is back in bed,
--- NOTE | 2017-05-06 18:31 | NUR ---
Dressing changes completed to R abd with betadine, 4x4 gauze. R groin with 1/4 Dakins, 4x4 gauze. Resting in bed, no distress.
--- NOTE | 2017-05-06 19:20 | NUR ---
RESTING IN BED ON LEFT SIDE. O2 PER N/C @ 2L FLOW.
--- NOTE | 2017-05-06 20:20 | NUR ---
RESTING QUIETLY IN BED, EYES CLOSED.
--- NOTE | 2017-05-06 21:55 | NUR ---
AWOKE PATIENT AND REPOSITIONED HIM UP IN BED. ASSESSMENT AND HS MEDS THEN COMPLETED. DRESSINGS TO RIGHT THIGH AND RIGHT UPPER ABDOMEN WERE CHANGED AROUND 1800 PER REPORT OF MARIELA FARIA, SO WILL NOT CHANGE THEM AGAIN TONIGHT.
[2017-05-07 00:10] VITALS: BP 97/55
--- NOTE | 2017-05-07 00:10 | NUR ---
PATIENT CALLING OUT @ 2345 AFTER UNSUCCESSFUL ATTEMPT OOB DUE TO URGENCY OF BM. [facility] [place] [place]. WAS ALREADY INCONTINENT IN UNDERWEAR WHEN TRYING TO GET HIM SEATED ON COMMODE. ON COMPLETION OF VERY LARGE, SOFT, VERY DARK GREENISH BM, I REMOVED HIS LIFE VEST DEFIB. AND SULFATE DRIER MACHINE OPERATOR SHOWERED HIM. PATIENT WAS REDRESSED AND RETURNED TO BED AFTER LINENS WERE CHANGED BY SULFATE DRIER MACHINE OPERATOR. REPLACED LIFE VEST AND RESTARTED IT. VS WERE TAKEN AND PATIENT THEN LAY DOWN WITH O2 PER N/C @ 2L. HOB UP 20 DEGREES FOR COMFORT.
--- NOTE | 2017-05-07 01:55 | NUR ---
RESTING IN BED ON RIGHT SIDE, HOB UP 20 DEGREES. NO DISTRESS EVIDENT.
--- NOTE | 2017-05-07 04:30 | NUR ---
REPLACED PATIENT'S NASAL CANNULA HE HAD PULLED IT OFF AGAIN. WITH BINDERY OPERATOR ASSIST, REPOSITIONED PATIENT HIGHER UP IN BED. GAVE HIM A FRESH BOX OF FACIAL TISSUE.
--- NOTE | 2017-05-07 06:20 | NUR ---
RESTING IN BED, EYES CLOSED.
--- NOTE | 2017-05-07 06:20 | NUR ---
RESTING IN BED, EYES CLOSED.
[2017-05-07 06:30] VITALS: BP 119/67
--- NOTE | 2017-05-07 10:09 | NUR ---
ALERT AND ORIENTED. DRESSING CHANGES COMPLETED TO R ABD WITH BETADINE, 4X4 GAUZE AND R THIGH WITH 1/4 DAKINS MOISTENED GAUZE,4X4.
[2017-05-07 11:54] VITALS: BP 101/60
--- NOTE | 2017-05-07 15:56 | NUR ---
CARE TEAM MEETING: PATIENT PROGRESSING IN THERAPY . TENATIVE DISCHARGE DATE IS 05/14/17. DISCHARGE PLANS ARE FOR PATIENT TO RETURN HOME AT THIS TIME. WILL CONTINUE TO FOLLOW WITH PATIENT AND WILL ASSIST WITH DISCHRGE NEEDS
--- NOTE | 2017-05-07 16:48 | NUR ---
RESTING QUIETLY WO DISTRESS. NO C/O PAIN.
[2017-05-07 18:29] VITALS: BP 104/55
--- NOTE | 2017-05-07 19:55 | NUR ---
PT. IN BED LYING ON HIS RIGHT SIDE WITH EYES CLOSED AND RESP. EVEN. PT. AWAKENS EASILY FOR ASSESSMENT. CALL LIGHT WITHIN REACH. LIFE VEST ON WITHOUT ANY ALARMS.
--- NOTE | 2017-05-07 23:10 | NUR ---
PT. IN BED WITH HOB UP FOR COMFORT WITH EYES CLOSED AND RESP. EVEN. CALL LIGHT WITHIN REACH. LIFE VEST INTACT AND WITHOUT ALARMS.
[2017-05-08 00:04] VITALS: BP 115/58
--- NOTE | 2017-05-08 03:05 | NUR ---
PT. IN BED WITH HOB UP FOR COMFORT. EYES CLOSED AND RESP. EVEN. O2 ON VIA N/C AT 2/LMIN AND NO S/S DISTRESS OBSERVED. LIFE VEST ON AND NO ALARMS SO FAR THIS SHIFT. CALL LIGHT WITHIN REACH.
[2017-05-08 05:44] VITALS: BP 97/67
[2017-05-08 07:28] LABS: BASOPHILS 0.3 % (0-2); EOSINOPHILS 4.2 % (0-7); HEMATOCRIT 37.2 % (42.0-54.0); HEMOGLOBIN 11.3 g/dL (13.5-17.5); IMMATURE GRANULOCYTES 0.3 % (0-5); LYMPHOCYTES 8.5 % (15-50); MCH 28.9 pg (26.0-34.0); MCHC 30.4 g/dL (31.0-37.0); MCV 95.1 fL (80.0-100.0); MEAN PLATELET VOLUME 11.6 fL (7.4-10.4); MONOCYTES 10.9 % (2-11); NEUTROPHILS 75.8 % (40-80); PLATELET COUNT 95 10x3/uL (130-400); RBC 3.91 10x6/uL (4.20-6.10); RDW 18.8 % (11.5-14.5); WBC 6.1 10x3/uL (4.8-10.8)
[2017-05-08 07:51] LABS: ANION GAP 16.7 mmol/L (8-16); CALCIUM 9.2 mg/dL (8.5-10.1); CARBON DIOXIDE 26.3 mmol/L (21.0-32.0); PHOSPHOROUS 6.6 mg/dL (2.5-4.9)
[2017-05-08 12:56] VITALS: BP 106/61
--- NOTE | 2017-05-08 13:43 | NUR ---
RECIEVED UP IN THERAPY. BACK IN ROOM AND DRESSINGS CHANGED TO LEG AND ABDOMEN. DENIES ANY PAIN. STATES " I'M WATING ON DIALYSIS TO TAKE ME DOWN". GOT IN BED AND HAS EYES CLOSED AT THIS TIME. CALL LIGHT IN REACH.
--- NOTE | 2017-05-08 19:40 | NUR ---
PT. SITTING UP IN W/C AND HASN'T BEEN BACK FROM DIALYSIS VERY LONG. PT. REPORTS THEY REMOVED 2 1/2 LITERS FLUID TODAY. ASSESSMENT COMPLETED. PT. WAITING FOR HIS SHOWER TONIGHT. CALL LIGHT WITHIN REACH.
[2017-05-08 19:55] VITALS: BP 88/50
--- NOTE | 2017-05-08 23:09 | NUR ---
PT. IN BED WITH HOB UP FOR COMFORT LYING ON HIS SIDE. EYES CLOSED AND RESP. EVEN. LIFE VEST EQUIPMENT IN PLACE AND WITHOUT ALARMS. CALL LIGHT WITHIN REACH.
[2017-05-09 00:55] VITALS: BP 92/55
--- NOTE | 2017-05-09 03:05 | NUR ---
PT. IN BED WITH HOB UP FOR COMFORT WITH EYES CLOSED AND RESP. EVEN. CALL LIGHT WITHIN REACH.
[2017-05-09 05:50] VITALS: BP 97/66
--- NOTE | 2017-05-09 08:15 | NUR ---
PT UP IN WHEELCHAIR IN THERAPY GYM TOLERATING WELL WILL MONITER
[2017-05-09 12:23] VITALS: BP 109/69
--- NOTE | 2017-05-09 16:40 | NUR ---
SITTING UP IN BED ON PHONE.CL IN REACH.
--- NOTE | 2017-05-09 17:43 | NUR ---
PT RESTING IN BED WITH EYES OPEN CALL LIGHT IN REACH WILL MONITER
[2017-05-09 19:45] VITALS: BP 108/46
--- NOTE | 2017-05-09 19:45 | NUR ---
RECIEVED SITTING UP ON SIDE OF BED WITH FAMILY AT BEDSIDE. ALERT AND ORIENTED. P[LEASANT AND COOPERATIVE. ASSISTED TO BED PER REQUEST. ABLE TO STAND USING WALKER. CALL LIGHT AND OVERBED TABLE IN REACH.
--- NOTE | 2017-05-10 00:02 | NUR ---
RESTING IN BED WITH EYES CLOSED AT THIS TIME. NO S/S OF DISTRESS OBSERVED. CALL LIGHT IN REACH.
[2017-05-10 01:00] VITALS: BP 91/54
--- NOTE | 2017-05-10 02:42 | NUR ---
RESTING IN BED WITH EYES CLOSED. NO S/S OF DISTRESS OBSERVED.
[2017-05-10 05:40] VITALS: BP 95/60
--- NOTE | 2017-05-10 08:00 | NUR ---
SITTING UP ON SIDE OF BED EATING BREAKFAST. DENIES ANY NEEDS OR PAIN. ALERT AND ORIENTED X4. NO S/SX OF RESPIRATORY DISTRESS NOTED. CALL LIGHT AND PERSONAL ITEMS WITHIN REACH, BED LOW AND ALARM ON. WILL CONTINUE TO MONITOR
[2017-05-10 08:33] VITALS: BP 106/62
--- NOTE | 2017-05-10 09:16 | NUR ---
ADMINISTERED MORNING MEDICATIONS CRUSHED IN APPLESAUCE WITHOUT DIFFICULTY. DENIES ANY NEEDS. CALL LIGHT AND WATER WITHIN REACH, BED LOW AND ALARM ON. WILL CONTINUE TO MONITOR
--- NOTE | 2017-05-10 09:55 | NUR ---
CHANGED UPPER RT THIGH AND RT ABDOMINAL DRESSING. RT THIGH OLD DRESSING NO S/SX OF EXUDATE OR INFECTION. CLEANSED WOUND WITH WOUND CLEANSER AND PACKED LOOSLY WITH PLAIN PACKING STRIPS MOISTENED WITH DAIKINS, FOLDED 4X4 COVERING AND MEDIPORE TO SECURE. RT ABDOMINAL OLD DRESSING NO S/SX OF EXUDATE OR INFECTION. CLEANSED AREA WITH WOUND CLEANSER AND PAINTED WITH BETADINE COVERED WITH FOLDED 4X4 AND SECURED WITH MEDIPORE TAPE.
[2017-05-10 12:10] VITALS: BP 121/72
--- NOTE | 2017-05-10 12:35 | NUR ---
TRANSPORTED TO DIALYSIS VIA W/C.
--- NOTE | 2017-05-10 16:30 | NUR ---
received pt back on floor via w/c from dialysis
[2017-05-10 18:16] VITALS: BP 103/72
--- NOTE | 2017-05-10 18:38 | NUR ---
SITTING UP IN CHAIR FAMILY VISITING. DENIES ANY NEEDS OR PAIN. CALL LIGHT AND PERSONAL ITEMS WITHIN REACH, BED LOW AND ALARM ON. WILL CONTINUE TO MONITOR
--- NOTE | 2017-05-10 19:14 | NUR ---
SHIFT REPORT COMPLETED FROM DAY SHIFT NURSE.
--- NOTE | 2017-05-10 20:26 | NUR ---
FAMILY MEMBERS TALK TO PT AT BEDSIDE.
--- NOTE | 2017-05-10 21:10 | NUR ---
DRESSING CHANGE ORDERED.
--- NOTE | 2017-05-10 23:34 | NUR ---
REST IN BED, CALL LIGHT IN REACH.
--- NOTE | 2017-05-11 00:31 | NUR ---
RESTING IN BED WITH O2@2 LITERS PER N/C. HOB ELEVATED. FISTULA TO LEFT UPPER ARM HAS GOOD BRUITT AND TRILL. CALL LIGHT AND OPVERBED TABLE IN REACH.
[2017-05-11 00:34] VITALS: BP 86/54
--- NOTE | 2017-05-11 04:50 | NUR ---
RESTING IN BED WITH EYES CLSOED. NO S/S OF DISTRESS OBSERVED. CALL LIGHT AND OVERBED TABLE IN REACH. O2@2 LITERS PER N/C WITH HOB ELEVATED. RESP EVEN AND UNLABORED.
[2017-05-11 06:02] VITALS: BP 89/51
[2017-05-11 08:41] VITALS: BP 102/58
[2017-05-11 13:06] VITALS: BP 104/54
--- NOTE | 2017-05-11 14:06 | NUR ---
DRESSING CHANGES TO R ABD AND R THIGH COMPLETED THIS AM. BETADINE TO R ABD,4X4. R THIGH WITH 1/4 DAKINS,4X4. FAMILY AT CELEBRATING PATRICK WITH PATIENT. NO C/O PAIN.
[2017-05-11 18:35] VITALS: BP 112/72
--- NOTE | 2017-05-11 19:20 | NUR ---
IN BED. AT BEDSIDE. DENIES NEEDS. BEDSIDE SHIFT REPORT COMPLETE.
--- NOTE | 2017-05-11 21:05 | NUR ---
ASSESSMENT AND HS MEDS COMPLETE. DRESSINGS CHANGED TO RIGHT UPPER ABDOMEN AND RIGHT THIGH PER CURRENT ORDERS (SEE PROCESS INTERVENTIONS). DENIES NEEDS. WAS UP TO BR COMMODE AROUND 1999 AND HAD A MEDIUM VOLUME FORMED BM AND WAS THEN RETURNED TO BED. CONTINUES ON O2 @ 2L PER N/C.
--- NOTE | 2017-05-11 22:15 | NUR ---
REQUESTED SNACK OF JELLO AND VANILLA WAFERS, BUT I WAS DELAYED BY OTHER PATIENTS' CALLS, I JUST NOW RETURNED WITH HIS SNACK TO FIND HIM RESTING QUIETLY WITH EYES CLOSED. HOB UP 20 DEGREES. CONTINUES ON O2 PER N/C BEFORE STATED.
--- NOTE | 2017-05-12 | NUR ---
IN BED, EYES CLOSED. RESPIRING QUIETLY.
[2017-05-12 00:43] VITALS: BP 91/54
--- NOTE | 2017-05-12 03:06 | NUR ---
RESTING IN BED WITH EYES CLOSED. NO S/ OF DISTRESS OBSERVED. CALL LIGHT AND OVERBED TABLE IN REACH.
[2017-05-12 06:12] VITALS: BP 100/61
[2017-05-12 07:21] LABS: BASOPHILS 0.3 % (0-2); EOSINOPHILS 3.3 % (0-7); HEMATOCRIT 37.3 % (42.0-54.0); HEMOGLOBIN 11.3 g/dL (13.5-17.5); IMMATURE GRANULOCYTES 0.2 % (0-5); LYMPHOCYTES 8.5 % (15-50); MCH 29.2 pg (26.0-34.0); MCHC 30.3 g/dL (31.0-37.0); MCV 96.4 fL (80.0-100.0); MEAN PLATELET VOLUME 11.4 fL (7.4-10.4); MONOCYTES 13.2 % (2-11); NEUTROPHILS 74.5 % (40-80); PLATELET COUNT 97 10x3/uL (130-400); RBC 3.87 10x6/uL (4.20-6.10); RDW 18.8 % (11.5-14.5); WBC 5.7 10x3/uL (4.8-10.8)
[2017-05-12 07:33] LABS: ANION GAP 17.6 mmol/L (8-16); CALCIUM 9.2 mg/dL (8.5-10.1); CARBON DIOXIDE 27.1 mmol/L (21.0-32.0); CREATININE - SERUM 10.3 mg/dL (0.6-1.3); POTASSIUM - SERUM 4.7 mmol/L (3.5-5.1)
[2017-05-12 09:53] VITALS: BP 103/63
--- NOTE | 2017-05-12 10:36 | NUR ---
SITTING ON SIDE OF BED TALKING WITH . DENIES PAIN. LIFE VEST STILL IN PLACE. DSG IN PLACE TO ABD AND RLE.
--- NOTE | 2017-05-12 16:11 | NUR ---
RESTING QUIETLY IN BED. EYES CLOSED. CALL LIGHT IN REACH. BED IN LOWEST POSITION
[2017-05-12 18:15] VITALS: BP 115/49
--- NOTE | 2017-05-12 19:45 | NUR ---
PT. IN BED WITH HOB UP FOR COMFORT AND IS WATCHING TV. ASSESSMENT COMPLETED. NO VOICED NEEDS AT THIS TIME. CALL LIGHT WITHIN REACH.
[2017-05-12 21:42] VITALS: BP 115/49
--- NOTE | 2017-05-12 23:10 | NUR ---
PT. IN BED WITH HOB/FOB UP FOR COMFORT WITH EYES CLOSED AND RESP. EVEN. O2 AT 3L/MIN VIA N/C WITHOUT ANY S/S DISTRESS. CALL LIGHT WITHIN REACH AND NO ALARMS FROM LIFE VEST THIS SHIFT SO FAR.
--- NOTE | 2017-05-13 03:08 | NUR ---
PT. IN BED WITH HOB UP FOR COMFORT. EYES CLOSED AND RESP. EVEN. O2 ON AT 3L/MIN VIA N/C WITHOUT ANY S/S DISTRESS. CALL LIGHT WITHIN REACH.
[2017-05-13 05:56] VITALS: BP 99/56
--- NOTE | 2017-05-13 09:18 | NUR ---
SITTING AT BS. GETTING READY FOR THERAPY. DRESSING CHANGE COMPLETED TO R ABD AND R THIGH PER ORDERS. EDEMA 2+ NOTED TO R FOOT. NO C/O PAIN, NO DISTRESS NOTED. HAS DIALYSIS SCHEDULED TODAY. WILL GET EARLY LUNCH FOR HIM. WEARS LIFE VEST.
--- NOTE | 2017-05-13 12:11 | NUR ---
Nutrition Follow Up: Pt was out of the room at the time of RD visit. Interview deferred. Pt is eating 84% meal avg on a renal ADA diet. +BM 05/12/17. Wt stable. Meds and labs reviewed. Rec continue current diet. RD following.
--- NOTE | 2017-05-13 12:15 | NUR ---
PATIENT TAKEN TO DIALYSIS @ 1215. ATE EARLY LUNCH BEFORE GOING TO DAILYSIS.
--- NOTE | 2017-05-13 15:56 | NUR ---
REPORT CALLED FROM DIALYSIS. 3L PULLED OFF. VS T 97.4 BP 86/53 P 77. RETURNING TO FLOOR AT THIS TIME.
--- NOTE | 2017-05-13 16:34 | NUR ---
BACK IN ROOM. L FISTULA WITH BRUIT/THRILL PRESENT. NO SIGN OF BLEEDING AT L FISTULA SITE. WILL MONITOR. SITTING UP IN WC.
[2017-05-13 18:10] VITALS: BP 106/58
--- NOTE | 2017-05-13 19:20 | NUR ---
ASSESS VITAL SIGNS, SEE FLOWSHEET.
--- NOTE | 2017-05-13 19:45 | NUR ---
PT. IN BED WITH HOB/FOB ELEVATED FOR COMFORT. EYES CLOSED AND RESP. EVEN WITH CALL LIGHT WITHIN REACH.
--- NOTE | 2017-05-13 20:16 | NUR ---
ASSISTED PT TO BATHROOM AND BACK TO BED.
[2017-05-13 23:42] VITALS: BP 94/48
--- NOTE | 2017-05-14 00:16 | NUR ---
REST IN BED, EYE CLOSE, CALL LIGHT IN REACH.
--- NOTE | 2017-05-14 03:18 | NUR ---
REST IN BED, CALL LIGHT IN REACH.
[2017-05-14 05:11] VITALS: BP 96/55
--- NOTE | 2017-05-14 05:15 | NUR ---
ASSESS PT'S VITAL, AND WEIGHT PT, RESULT SEE FLOWSHEET.
--- NOTE | 2017-05-14 10:11 | NUR ---
PATIENT IS DISCHARGING HOME TODAY. CHECKED O2 ON RA. PATIENT IS 88%. WILL NEED O2 @ HOME.
--- NOTE | 2017-05-14 10:29 | NUR ---
PATIENT AT REST O2 SAT 87%, APPLIED O2 AT 2L PER NASAL CANNULA O2 SAT 96% AT REST. ORDER FOR O2 SENT TO [facility] PATIENT.
[2017-05-14 12:19] VITALS: BP 103/55
--- NOTE | 2017-05-14 13:58 | NUR ---
PATIENT DISCHARGING HOME WITH FAMILY. [facility] WILL FOLLOW WITH PATIENT FOR THEREAPY AT HOME. PATIENT WILL CONTINUE HIS SAME HD DAYS AND TIME AT [facility]. [facility] WILL DELIVER HOME AND PORTABLE O2 TO PATIENT. DR. JUAREZ 05/22/17 @ 10:15, DR. EM 05/21/17 @ 12:00. PATIENT CHOICE FORMS FOR HOME HEALTH AND [facility] FORM SIGNED, EXPLAINED AND FILED IN CHART. RECORDS HAVE BEEN FAXED TO [facility] AND TO [facility] WITH CONFORMATION RECIEVED
--- NOTE | 2017-05-14 15:54 | NUR ---
[facility] WILL BE FOLLOWING WITH PATIENT AT HOME INSTEAD OF [facility].
--- NOTE | 2017-05-14 16:48 | NUR ---
DC INSTRUCTIONS WERE GIVEN TO PATIENT AND FAMILY. VERBALIZED UNDERSTANDING. INSTRUCTIONS GIVEN ON MEDICATIONS ANS DRESSING CHANGES. PRINTED MED LIST WITH INFORMATION GIVEN TO PT/FAMILY. ASSISTED TO CAR VIA WC PER STAFF FOR DC HOME.
--- NOTE | 2017-06-26 14:37 | DS ---
PATIENT:FOX GUILLORY :53 MEDICAL RECORD: [id number] DISCHARGE SUMMARY ADMISSION DATE: 04/25/17 DISCHARGE DATE: 05/14/17 This is a discharge dated 05/14/2017 from inpatient rehab. PRIMARY DIAGNOSIS: Decreased functional ability and ability to provide activities of daily living secondary to uremic myopathy. SECONDARY DIAGNOSES: 1. End-stage renal disease on hemodialysis 3 times weekly. 2. Right lower extremity wound. 3. Coronary artery disease. 4. Congestive heart failure. 5. Diabetes. 6. Hypertension. 7. History of implanted defibrillator. 8. Calciphylaxis. 9. Mitral valve regurgitation. 10. Hyperkalemia. 11. Vertigo. 12. Chronic noncompliance. 13. Thrombocytopenia. CONSULTANTS FOLLOWING THIS HOSPITALIZATION: 1. Cardiology with Dr. Ngo. 2. Nephrology with Dr. Elizondo. HOSPITAL COURSE: Full H&P is located elsewhere on the chart on this 61-year-old male who was admitted to inpatient rehab for physical therapy and occupational therapy to improve gait, transfer skills, bed mobility, and activities of daily living to a modified independent level. He was evaluated by PT and OT and their plans of care were followed. He required retirement care for observation and assessment, medication administration, as well as wound care. He continued on hemodialysis 3 times weekly during this hospital stay and was followed by Dr. Elizondo. Electrolytes were managed by protocol. He continued on appropriate home medications. He was no code just for code status. He did have speech therapy during this hospital stay as well and was also seen by cardiology. He was cooperative with therapies, progressing towards goals. Case management was involved for discharge planning. He was considered stable for discharge on 05/14/2017. DISCHARGE MEDICATIONS: As per discharge medication reconciliation. DISCHARGE DISPOSITION: The patient is discharged home. He will continue his current diet and level of activity and will have home health for continued PT and OT. He will follow up with primary care in 7 to 10 days. He will follow up with nephrology in dialysis 3 days weekly. At least 30 minutes was spent in this discharge activity. TRANSINT:[id number] Voice Confirmation ID: [id number] DOCUMENT ID: [id number] Dictated By: HUYEN MERCEDES DISCHARGE SUMMARY REPORT [id number] FOX GUILLORY I have interviewed/examined the above patient and agree with these documented findings. BRUCE PIERCE MD at 1802 at 1437 CC: [id number] DICTATION DATE: 06/22/17 1451 BUSINESS ASST: 06/23/17 0155 DIS IN 05/14/17 [id number] [place] [address]
== END 2017-05-14 15:30 | disposition home health service (06) | DRG 91 ==
LOC: D.REHAB 09:44 → EDBD 09:44 → D.REHAB 05-14 15:30
PROVIDERS: Internal Medicine; Internal Medicine Nephrology; ADMIT Emergency Medicine
PROC: 5A1D70Z Performance of Urinary Filtration, Intermittent, Less than 6 Hours Per Day (ICD-10-PCS; principal; 2017-04-26)
DX: G72.89 Other specified myopathies (principal); N18.6 End stage renal disease; I50.43 Acute on chronic combined systolic (congestive) and diastolic (congestive) heart failure; I13.2 Hypertensive heart and chronic kidney disease with heart failure and with stage 5 chronic kidney disease, or end stage renal disease; N17.9 Acute kidney failure, unspecified; I48.92 Unspecified atrial flutter; E11.22 Type 2 diabetes mellitus with diabetic chronic kidney disease; Z99.2 Dependence on renal dialysis; R00.1 Bradycardia, unspecified; I34.0 Nonrheumatic mitral (valve) insufficiency; E87.5 Hyperkalemia; S71.101A Unspecified open wound, right thigh, initial encounter; Z91.14 Patient's other noncompliance with medication regimen; Z95.1 Presence of aortocoronary bypass graft; Z66 Do not resuscitate